=== PATIENT | female | born 1975 | race Caucasian/White ===

== ENCOUNTER → 2018-11-13 | Outpatient (CLI) | payer BC, OTHER | END | disposition home or self-care (01) | LOC: PREOP 06:20 | PROVIDERS: ATTEND Surgery | DX: Z01.818 Encounter for other preprocedural examination (principal) ==

== ENCOUNTER 2018-11-26 10:27 | Day surgery (SDC) | payer BC, OTHER ==
[~2018-11-26] VITALS: Ht 162.6 cm; Wt 70.3 kg
[2018-11-26] VITALS (19 sets, daily range): BP systolic 116–145; BP diastolic 65–93
[~2018-11-26 10:27] MED LIST: NS IV 500 ML 500 ML ONE
[2018-11-26] MEDS ORDERED: NS IV 500 ML 500 ML IV PRN (10:36)
--- OUTSIDE RECORDS SUMMARY | 2018-11-26 10:38 | XMS REPORT | Continuity of Care Document ---
Author Organization Unknown Address Unknown Allergies Active Description Code Type Severity Reaction Onset Reported/Identified Relationship to Patient Clinical Status Yes NO KNOWN DRUG ALLERGIES UNKNOWN NO KNOWN DRUG ALLERG Yes NO KNOWN DRUG ALLERGIES UNKNOWN UNKNOWN Medications There is no data. Problems Date Dx Coded Attending Type Code Diagnosis Diagnosed By 03/25/2017 David Salter 308.9 UNSPECIFIED ACUTE REACTION TO STRESS 03/25/2017 David Salter 704.00 ALOPECIA, UNSPECIFIED 03/25/2017 David Salter F43.9 REACTION TO SEVERE STRESS, UNSPECIFIED 03/25/2017 David Salter W L65.9 NONSCARRING HAIR LOSS, UNSPECIFIED 03/25/2017 David Salter W 308.9 UNSPECIFIED ACUTE REACTION TO STRESS 03/25/2017 David Salter W 704.00 ALOPECIA, UNSPECIFIED 03/25/2017 David Salter W F43.9 REACTION TO SEVERE STRESS, UNSPECIFIED 03/25/2017 David Salter W L65.9 NONSCARRING HAIR LOSS, UNSPECIFIED 04/05/2017 David Salter W 308.9 UNSPECIFIED ACUTE REACTION TO STRESS 04/05/2017 David Salter W 704.00 ALOPECIA, UNSPECIFIED 04/05/2017 David Salter F43.9 REACTION TO SEVERE STRESS, UNSPECIFIED 04/05/2017 David Salter W L65.9 NONSCARRING HAIR LOSS, UNSPECIFIED 04/05/2017 David Salter W 308.9 UNSPECIFIED ACUTE REACTION TO STRESS 04/05/2017 David Salter W 704.00 ALOPECIA, UNSPECIFIED 04/05/2017 David Salter F43.9 REACTION TO SEVERE STRESS, UNSPECIFIED 04/05/2017 David Salter W L65.9 NONSCARRING HAIR LOSS, UNSPECIFIED Procedures There is no data. Results Test Result Range Mycoplasma - 05/11/16 14:47 Mycoplasma Negative Negative Thyroid Stimulating Hormone - 03/25/17 11:03 TSH 1.75 mIU/mL 0.32-5.00 Ferritin - 03/25/17 11:03 Ferritin 59.85 ng/mL 4.63-204.00 TALA w/Reflex - 04/05/17 14:35 TALA DIRECT NEGATIVE NEGATIVE Testosterone,Free and Total - 04/05/17 14:35 FREE TESTOSTERONE(DIRECT) 0.4 PG/ML 0.0-4.2 TESTOSTERONE, SERUM 19 NG/DL 8-48 C.difficile, DNA Amplification - 10/28/18 09:37 C.difficile, DNA Amplification NEGATIVE: No DNA evidence of toxogenic C. difficile detected. Negative Stool Culture - 10/28/18 09:37 CAMPYLOBACTER CULTURE FINAL REPORT E COLI SHIGA TOXIN EIA NEGATIVE NEGATIVE RESULT 1 NO SALMONELLA OR SHIGELLA RECOVERED. Salmonella/Shigella Screen FINAL REPORT Result 1 NO CAMPYLOBACTER SPECIES ISOLATED. Encounters ACCT No. Visit Date/Time Discharge Status Pt. Type Provider Facility Loc./Unit Complaint [id number] 10/28/2018 09:34:00 10/28/2018 23:59:00 DIS Outpatient David Salter [id number] 10/27/2018 10:24:00 10/27/2018 10:24:00 CAN Outpatient David Salter [id number] 04/05/2017 14:32:00 04/05/2017 23:59:00 DIS Outpatient David Salter [id number] 03/25/2017 11:00:00 03/25/2017 23:59:00 DIS Outpatient David Salter [id number] 05/11/2016 14:44:00 05/11/2016 23:59:00 [facility] Outpatient David Salter
[2018-11-26] MEDS ORDERED: MIDAZOLAM 2 MG/2 ML (VERSED) VIAL IVP ONE (10:45)
[2018-11-26] MEDS ORDERED: fentaNYL INJECTION 100 MCG/2 ML AMP IVP ONE (10:45)
[2018-11-26] MEDS ORDERED: HURRICAINE EXT TUBE (BENZOCAINE) XX PRN (10:45)
--- NOTE | 2018-11-26 10:55 | Conscious Sedation/ASA ---
Conscious Sedation Pre-Proced Time 10:00 ASA Score 2 For ASA 3 and 4: Consider anesthesia and medical clearance. Also, for patients with a history of failed moderate sedation consider anesthesia. Airway Lungs Heart ASA score ASA 1: a normal healthy patient ASA 2: a patient with a mild systemic disease (mid diabetes, controlled hypertension, obesity ASA 3: a patient with a severe systemic disease that limits activity (angina, COPD, prior Myocardial infarction) ASA 4: a patient with an incapacitating disease that is a constant threat to life (CHF, renal failure) ASA 5: a moribund patient not expected to survive 24 hrs. (ruptured aneurysm) ASA 6: a declared brain- patient whose organs are being harvested. For emergent operations, add the letter E after the classification Mallampati Classification Grade 2 Sedation Plan Analgesia, Amnesia, Plan communicated to team members, Discussed options with patient/fam, Discussed risks with patient/fam The patient is an appropriate candidate to undergo the planned procedure, sedation, and anesthesia. The patient immediately re-assessed prior to indication. ESA SALDANA MD Nov 26, 2018 10:55
--- NOTE | 2018-11-26 10:55 | Progress Note-Pre Operative ---
Pre-Operative Progress Note H&P Reviewed The H&P was reviewed, patient examined and no changes noted. Date Seen by Provider: Nov 26, 2018 Time Seen by Provider: 10:00 Date H&P Reviewed: Nov 26, 2018 Time H&P Reviewed: 10:00 Pre-Operative Diagnosis: change bowel habits, GERD ESA SALDANA MD Nov 26, 2018 10:55
[2018-11-26] MEDS ORDERED: PANT40TA2 PO (10:56)
--- NOTE | 2018-11-26 10:57 | Discharge Inst-Surgical ---
D/C Lap Instructions-KIDO New, Converted, or Re-Newed RX: RX on Chart Follow Up Activity as tolerated High Fiber Diet 25g or more per day Avoid Alcohol, Caffeine, Spicy [place] and Acid foods. Drink 64 fluid oz or more of fluids per day. Symptoms to Report: Fever over 101 degree F, Nausea/Vomiting If any problems/questions: Contact your physician or go to Emergency Room ESA SALDANA MD Nov 26, 2018 10:57
[2018-11-26] MEDS ORDERED: morphine INJ 10 MG/ML 1ML (SYR OR VIAL) IVP PRN ×2 (11:00)
[2018-11-26] MEDS ORDERED: HYDROcodone/APAP 5 MG/325 MG (LORTAB) TAB PO PRN (11:00)
[2018-11-26] MEDS ORDERED: ONDANSETRON 4 MG/2 ML (SDV) Z0FRAN IVP PRN (11:00)
[2018-11-26] MEDS ORDERED: ACETAMINOPHEN 325 MG TABLET PO PRN (11:00)
[2018-11-26] MEDS ORDERED: MIDAZOLAM 2 MG/2 ML (VERSED) VIAL ONE ×7 (11:15→12:05)
[2018-11-26] MEDS ORDERED: LIDOCAINE JELLY 2% 6 ML SYRINGE ONE (11:15)
[2018-11-26] MEDS ORDERED: fentaNYL INJECTION 100 MCG/2 ML AMP ONE ×3 (11:15→12:05)
[2018-11-26] MEDS ORDERED: HURRICAINE EXT TUBE (BENZOCAINE) ONE (11:16)
--- NOTE | 2018-11-26 13:35 | NUR ---
GALLBLADDER US SCHEDULED FOR Saturday12/01/18 AT 0800.
--- NOTE | 2018-11-26 15:22 | OPERATIVE REPORT ---
DATE OF SERVICE: 11/26/2018 ATTENDING PRIMARY CARE PHYSICIAN: Dr. Salter. PREOPERATIVE DIAGNOSES: Persistent diarrhea, abdominal bloating, reflux. POSTOPERATIVE DIAGNOSES: Reflux esophagitis, stage II. Small hiatal hernia, 1.5 cm in size. Mild to moderate gastritis. Colon and rectum were normal. PROCEDURE: EGD with biopsy, colonoscopy. SURGEON: Esa Damon MD. ANESTHESIA: Conscious sedation. ESTIMATED BLOOD LOSS: Minimal. FINDINGS: Reflux esophagitis, stage II. Small hiatal hernia, 1.5 cm in size. Mild to moderate gastritis. Colon and rectum were normal. DISPOSITION: The patient tolerated the procedure well. INDICATIONS: The patient is a 43-year-old female who has had crampy abdominal pain and diarrhea for the past eight weeks. She states that she went on Weight Watchers in the month of September and then developed crampy abdominal pain and diarrhea. She also states that she also does take antibiotics for sinusitis approximately 3 times a year with azithromycin and her last round was approximately in August of this year. She did have stool cultures drawn, which were negative for Clostridium difficile. She does not report any red blood per rectum nor any dark tarry stools. She also has had crampy abdominal pain after eating meals with abdominal bloating and reflux and regurgitation type of symptoms with epigastric burning sensation. DESCRIPTION OF PROCEDURE: The patient was brought to the endoscopy suite, laid in left lateral decubitus position. After adequate IV pain and sedative medications and conscious sedation anesthesia, the mouthpiece was applied. Endoscope was placed in the mouth, visualizing the pharynx and hypopharyngeal region. Vocal cords, epiglottis and vallecula identified and appeared to be normal. The endoscope was then gently intubated at the esophageal opening and esophagus insufflated. The endoscope was then advanced to the first, second and third portions of the esophagus at the level of the GE junction, a reflux esophagitis, stage II identified. There were no ulcers or strictures identified in this region. A biopsy was taken with forceps with visualization of good hemostasis. The endoscope was then easily advanced in the stomach and endoscope retroflexed, visualizing a small hiatal hernia 1.5 cm in size. There was a mild to moderate gastritis and a biopsy was taken of the antrum to rule out H. pylori. The endoscope was then advanced to the pylorus and first and second portion of the duodenum, which appeared normal and no distal obstructions. The endoscope was then slowly withdrawn while taking a second look and suctioning of residual air with no additional findings. The patient tolerated the procedure well. We will recommend the necessary lifestyle and diet accommodation including small and more frequent meals, avoidance of eating at night as well as head elevation while lying supine. She also needs to avoid caffeinated beverages, spicy, greasy and acidic foods. We will also start her on trial of Protonix 40 mg daily. If she has continued symptoms of abdominal bloating and reflux despite maximal medical therapy, this may be a gallbladder etiology and we will proceed with an ultrasound of the gallbladder as well as a HIDA scan if necessary. Under the same anesthesia, we then proceeded with colonoscopy portion of the procedure. A digital rectal examination was performed. No significant hemorrhoids identified. Normal sphincter tone was felt and there were no palpable masses. The endoscope was then intubated to the anus and rectum gently insufflated. The endoscope was then advanced through the valves of Watts and rectum with no polyps or any neoplasms identified. We then proceeded through the sigmoid colon where no diverticulosis identified. The endoscope was then advanced to the remainder of the descending, transverse and ascending colon to the cecum. These segments were normal. There were no polyps, neoplasms or any mucosal inflammatory changes identified. The endoscope was then slowly withdrawn while taking a second look and suctioning of residual air with no additional findings. The patient tolerated the procedure well. We will recommend conservative therapy for now with incorporation of a high fiber diet with at least 25 to 30 grams of fiber per day as well as significant amounts of water to promote soft stools on a daily basis that is not liquid diarrhea; however, not hard or well-formed. Job ID: [id number] DocumentID: [id number] Dictated Date: 11/26/2018 12:30:57 Power Marketer Date: 11/26/2018 15:22:01 Dictated By: ESA DAMON MD
== END 2018-11-26 13:43 | disposition home or self-care (01) ==
LOC: ENDO 10:27
PROVIDERS: ATTEND Surgery
DX: K21.0 Gastro-esophageal reflux disease with esophagitis (principal); K44.9 Diaphragmatic hernia without obstruction or gangrene; K29.70 Gastritis, unspecified, without bleeding; K52.9 Noninfective gastroenteritis and colitis, unspecified; F41.9 Anxiety disorder, unspecified
CPT/HCPCS: 88305

== ENCOUNTER → 2018-12-01 | Outpatient (CLI) | payer BC, OTHER ==
[~2018-12-01] MED LIST changes: -NS IV 500 ML 500 ML ONE; +PANT40TA2 PO
--- NOTE | 2018-12-01 08:52 | Diagnostic Imaging Report ---
PROCEDURE: US Gallbladder. TECHNIQUE: Multiple real-time grayscale images were obtained over the right upper quadrant in various projections. INDICATION: Abdominal pain. Bloating. COMPARISON: None. FINDINGS: The liver is normal in size and shape. The liver echogenicity is within normal limits. There are no focal lesions. No intrahepatic biliary dilatation is present. The common bile duct is not dilated and measures 4 mm. The main portal vein is hepatopedal. There is no evidence of cholelithiasis, gallbladder wall thickening or pericholecystic fluid. The visualized pancreas is within normal limits. The visualized portions of the IVC and aorta appear normal. The right kidney measures approximately 10.9 cm in length and has a normal appearance. IMPRESSION: 1. No cholelithiasis or acute cholecystitis. No liver or gallbladder abnormality detected. Dictated by: Dictated on workstation # [id number]
== END ==
LOC: RAD 08:08
PROVIDERS: ATTEND Surgery
DX: R10.9 Unspecified abdominal pain (principal); R14.0 Abdominal distension (gaseous)
CPT/HCPCS: 76705

== ENCOUNTER → 2018-12-18 | Outpatient (CLI) | payer BC, OTHER ==
[~2018-12-18] MED LIST changes: +CATHETER FLUSH 10 ML SYR IV PRN
--- NOTE | 2018-12-18 15:55 | Diagnostic Imaging Report ---
INDICATION: Right upper quadrant abdominal pain. TECHNIQUE: Nuclear hepatobiliary study performed in the routine fashion with intravenous injection of 5.34 mCi of technetium-99m Choletec. FINDINGS: There is prompt uptake of the tracer by the liver. Tracer is visualized in the biliary tree within 15 minutes. Tracer is visualized in the gallbladder within 15 minutes. Tracer is visualized in the small bowel within 1 hour. The patient was then given Ensure orally. The gallbladder ejection fraction was calculated. The calculated gallbladder ejection fraction was 10.5 percent. IMPRESSION: No evidence of cystic duct or common duct obstruction. Diminished gallbladder ejection fraction of 10.5% is compatible with biliary dyskinesia. Dictated by: Dictated on workstation # [id number]
== END ==
LOC: CARD 11:42
PROVIDERS: ATTEND Surgery
DX: R10.11 Right upper quadrant pain (principal); R14.0 Abdominal distension (gaseous)
CPT/HCPCS: 78227

== ENCOUNTER 2018-12-26 05:05 | Outpatient (CLI) | payer BC, OTHER ==
[~2018-12-26] VITALS: Ht 162.6 cm; Wt 70.3 kg
[~2018-12-26 05:05] MED LIST changes: -CATHETER FLUSH 10 ML SYR IV PRN
== END 2018-12-26 10:51 ==
LOC: PREOP 05:05
PROVIDERS: ATTEND Surgery
DX: Z01.818 Encounter for other preprocedural examination (principal); K82.8 Other specified diseases of gallbladder

== ENCOUNTER 2019-01-01 06:55 | Day surgery (SDC) | payer BC, OTHER ==
[~2019-01-01] VITALS: Ht 162.6 cm; Wt 70.3 kg
[2019-01-01] VITALS (11 sets, daily range): BP systolic 120–156; BP diastolic 78–94
[2019-01-01] MEDS ORDERED: LACTATED RINGERS 1,000 ML IV PRN (07:50)
[2019-01-01 07:53] LABS: BASOPHILS % (AUTO) 0 % (0-10); EOSINOPHILS # (AUTO) 0.3 10^3/uL (0.0-0.3); EOSINOPHILS % (AUTO) 5 % (0-10); HEMATOCRIT 42 % (35-52); HEMOGLOBIN 14.9 G/DL (11.5-16.0); LYMPHOCYTES # (AUTO) 1.4 X 10^3 (1.0-4.0); LYMPHOCYTES % (AUTO) 21 % (12-44); MEAN CORPUSCULAR HEMOGLOBIN 30 PG (25-34); MEAN CORPUSCULAR HGB CONC 36 G/DL (32-36); MEAN CORPUSCULAR VOLUME 84 FL (80-99); MEAN PLATELET VOLUME 10.3 FL (7.4-10.4); MONOCYTES # (AUTO) 0.5 X 10^3 (0.0-1.0); MONOCYTES % (AUTO) 7 % (0-12); NEUTROPHILS # (AUTO) 4.5 X 10^3 (1.8-7.8); NEUTROPHILS % (AUTO) 68 % (42-75); PLATELET COUNT 256 10^3/uL (130-400); RED CELL DISTRIBUTION WIDTH 12.9 % (10.0-14.5); WHITE BLOOD COUNT 6.7 10^3/uL (4.3-11.0)
[2019-01-01] MEDS ORDERED: ceFAZolin 2 GM/50 ML NS 50 ML IV ONE (08:00)
--- NOTE | 2019-01-01 08:34 | Progress Note-Pre Operative ---
Pre-Operative Progress Note H&P Reviewed The H&P was reviewed, patient examined and no changes noted. Date Seen by Provider: Jan 01, 2019 Time Seen by Provider: 08:30 Date H&P Reviewed: Jan 01, 2019 Time H&P Reviewed: 08:25 Pre-Operative Diagnosis: Chronic calculous cholecystitis BARTOLOME JACKSON APRN Jan 01, 2019 08:34
[2019-01-01] MEDS ORDERED: HYDR-3816 PO (08:36)
--- NOTE | 2019-01-01 08:37 | Discharge Inst-Surgical ---
D/C Lap Instructions-KIDO Reconcile Patient Problems Problems Reviewed?: Yes New, Converted, or Re-Newed RX: RX on Chart Follow Up Appt in 2 weeks Activity as tolerated No driving for 24 hours No driving while on pain medications Incentive Spirometry use every 2 hours while awake Regular Diet Symptoms to Report: Fever over 101 degree F, Nausea/Vomiting Infection Signs and Symptoms to report: Increased redness, Foul odor of wound, Increased drainage Bathing instructions: May shower Operative Area Clean/Dry; Keep incision clean/dry If any problems/questions: Contact your physician or go to Emergency Room BARTOLOME JACKSON APRN Jan 01, 2019 08:37
[2019-01-01] MEDS ORDERED: ONDANSETRON 4 MG/2 ML (SDV) Z0FRAN ONE (08:39)
[2019-01-01] MEDS ORDERED: ROCURONIUM 10 MG/ML 5 ML SYRINGE IV ONE (08:39)
[2019-01-01] MEDS ORDERED: proPOfol 200 MG/20 ML (DIPRIVAN) VIAL IV ONE (08:39)
[2019-01-01] MEDS ORDERED: MIDAZOLAM 2 MG/2 ML (VERSED) VIAL ONE (08:39)
[2019-01-01] MEDS ORDERED: NEOSTIGMINE 3 MG/3 ML VIAL ONE (08:39)
[2019-01-01] MEDS ORDERED: DEXAMETHASONE 10 MG/ML (DECADRON) 1 ML VIAL ONE (08:39)
[2019-01-01] MEDS ORDERED: LIDOCAINE PF 2% 5 ML (XYLOCAINE) VIAL ONE (08:39)
[2019-01-01] MEDS ORDERED: GLYCOPYRROLATE 0.2 MG/ML (ROBINUL) 2 ML VIAL ONE (08:39)
[2019-01-01] MEDS ORDERED: SEVOFLURANE (ULTANE) 15 ML INHAL SOLN ONE (08:39)
[2019-01-01] MEDS ORDERED: fentaNYL INJECTION 100 MCG/2 ML AMP ONE ×2 (08:39→09:25)
[2019-01-01] MEDS ORDERED: BUP/EPI 0.5% 1:200,000 (MARCAINE) 10ML VIAL IJ ONE (08:42)
[2019-01-01] MEDS ORDERED: morphine INJ 10 MG/ML 1ML (SYR OR VIAL) IVP PRN (08:45)
[2019-01-01] MEDS ORDERED: ACETAMINOPHEN 325 MG TABLET PO PRN (08:45)
[2019-01-01] MEDS ORDERED: ONDANSETRON 4 MG/2 ML (SDV) Z0FRAN IVP PRN ×2 (08:45→10:15)
[2019-01-01] MEDS ORDERED: HYDROcodone/APAP 5 MG/325 MG (LORTAB) TAB PO ONE (08:45)
--- NOTE | 2019-01-01 10:14 | Progress Note-Post Operative ---
Post-Operative Progess Note Surgeon (s)/Commercial Lease Administrator (s) Surgeon ESA SALDANA MD Commercial Lease Administrator: evan wilson [employer]IC Pre-Operative Diagnosis Chronic calculous cholecystitis Post-Operative Diagnosis same Procedure & Operative Findings Date of Procedure 01/01/19 Procedure Performed/Findings laparoscopic cholecystectomy Anesthesia Type get Estimated Blood Loss Estimated blood loss (mL): minimal Specimens/Packing Specimens Removed none ESA SALDANA MD Jan 01, 2019 10:14
[2019-01-01] MEDS ORDERED: HYDROmorphone 2 MG/ML VIAL (DILAUDID) IV ONE (10:15)
[2019-01-01] MEDS ORDERED: morphine INJ 10 MG/ML 1ML (SYR OR VIAL) IVP ONE (10:15)
[2019-01-01] MEDS ORDERED: HYDROcodone/APAP 5 MG/325 MG (LORTAB) TAB ONE (11:25)
--- NOTE | 2019-01-01 12:20 | Anesthesia-General Post-Op ---
General Patient Condition Mental Status/LOC: Same as Preop Cardiovascular: Satisfactory Nausea/Vomiting: Absent Respiratory: Satisfactory Pain: Controlled Complications: Absent Post Op Complications Complications None Follow Up Care/Instructions Patient Instructions None needed. Anesthesia/Patient Condition Patient Condition Patient is doing well, no complaints, stable vital signs, no apparent adverse anesthesia problems. No complications reported per nursing. REBECCA BURKS CRNA Jan 01, 2019 12:20
--- NOTE | 2019-01-01 14:54 | OPERATIVE REPORT ---
DATE OF SERVICE: 01/01/2019 ATTENDING PRIMARY CARE PHYSICIAN: David Salter DO. PREOPERATIVE DIAGNOSIS: Symptomatic biliary dyskinesia. POSTOPERATIVE DIAGNOSIS: Symptomatic biliary dyskinesia. PROCEDURE: Laparoscopic cholecystectomy. SURGEON: Esa Saldana MD. VIDEO SURVEILLANCE TECHNICIAN: Montez Isaac APRN. ANESTHESIA: General endotracheal. ESTIMATED BLOOD LOSS: Minimal. FINDINGS: Mild dilatation of the gallbladder. Cholesterolosis. DISPOSITION: The patient tolerated the procedure well. INDICATIONS: The patient is a 43-year-old female who developed abdominal bloating and diarrhea as well as crampy abdominal pain starting in 09/2018. She states that she went on Weight Watchers and did lose a significant amount of weight at that time. She reported that her symptoms were much more apparent after eating meals. She underwent an ultrasound, which did not show any gallstones; however, further investigation with a HIDA scan did show low ejection fraction of 10.5% consistent with a symptomatic biliary dyskinesia. DESCRIPTION OF PROCEDURE: The patient was brought to the operating room, laid supine on the table. After adequate IV pain and sedative medications and general endotracheal intubation, the abdomen was prepped and draped in standard surgical fashion. A 0.5% Marcaine with epinephrine was then used to anesthetize the overlying skin in the left upper abdominal quadrant and a transverse skin incision made using a 15 blade. An 0 silk suture was applied to the medial aspect of incision for traction and a Veress needle inserted with a low opening pressure of 0 mmHg and the abdomen was then insufflated to 15 mmHg pressure. The Veress needle removed and a 5 mm Xcel trocar placed followed by a 5 mm 45-degree angle laparoscope visualizing the peritoneal cavity. A 4-quadrant abdominal exploration was performed. There was a slightly distended gallbladder with no gallbladder wall inflammation. The liver, stomach, small bowel appeared normal. Under direct visualization, we then proceeded to place a supraumbilical 10 mm port after the skin and peritoneal lining were anesthetized using 0.5% Marcaine with epinephrine and a transverse skin incision made using a 15 blade. In a similar manner, a right upper abdominal quadrant 5 mm port was placed. The patient was then placed in reverse Trendelenburg position as well as plane right side up, left side down. The fundus of the gallbladder was then retracted anteriorly and superiorly. The hepatoduodenal ligament was then opened using blunt dissection as well as electrocautery using the hook instrument. The entire critical view of safety was identified including the triangle of Calot as well as the cystic duct and artery as only two structures going into the gallbladder as well as the cystic plate behind the proximal gallbladder. A timeout was then taken and the cystic duct and artery were then clipped proximally and distally and cut with EndoShears. The gallbladder was dissected off the liver bed using cautery on the hook instrument with visualization of good hemostasis as well as no leaking ducts of Luschka. The gallbladder was removed through the 10 mm port site using an EndoCatch bag. The 10 mm port site fascia and peritoneum were then closed under direct visualization using a Brandon-Byron device and 0 Vicryl suture. The abdomen was then desufflated and remaining ports removed. All skin incisions were closed using 4-0 Monocryl running subcuticular sutures. Wounds were then cleaned and covered with Dermabond. The patient tolerated the procedure well. We will start IV normal pain medication as well as a clear liquid diet. When she is tolerating clears and has good pain control with oral pain medications, ambulating well, we will discharge her home. She will also be instructed to avoid lifting and exertion for the next two weeks. Job ID: [id number] DocumentID: [id number] Dictated Date: 01/01/2019 10:17:36 Transit Clerk Date: 01/01/2019 14:54:21 Dictated By: ESA SALDANA MD
== END 2019-01-01 12:30 | disposition home or self-care (01) ==
LOC: SDC 06:55
PROVIDERS: ATTEND Surgery
DX: K81.1 Chronic cholecystitis (principal); K82.8 Other specified diseases of gallbladder; K21.9 Gastro-esophageal reflux disease without esophagitis; F41.9 Anxiety disorder, unspecified; Z90.49 Acquired absence of other specified parts of digestive tract; Z79.891 Long term (current) use of opiate analgesic; Z79.899 Other long term (current) drug therapy; Z82.49 Family history of ischemic heart disease and other diseases of the circulatory system
CPT/HCPCS: 36415; 84703; 85025; 87081; 88304